=== PATIENT | male | born 1975 | race Caucasian/White ===

== ENCOUNTER 2022-12-19 10:27 | Day surgery (SDC) | payer BC ==
[2022-12-17 13:55] LABS: Absolute Lymphocytes (CBC) 2.3 K/uL (0.7-4.9); Hematocrit 41.7 % (39.6-49.0); Lymphocytes % 31.6 % (15.3-44.8); MCV 92.8 fL (80-100); MPV 7.1 fL (7.6-11.3)
[2022-12-17 14:00] LABS: Potassium 4.1 mmol/L (3.5-5.1); Protime INR 0.99
--- NOTE | 2022-12-17 14:10 | RAD REPORT ---
EXAM DESCRIPTION: Kylah Flores And Maximiliano (2 Views)12/17/2022 1:44 pm CLINICAL HISTORY: Preop for cardiac catheterization COMPARISON: None FINDINGS: The lungs appear clear of acute infiltrate. The heart is normal size IMPRESSION: No acute abnormalities displayed
[2022-12-19] MEDS ORDERED: NA CHLORIDE 0.9% 500 ML ONE (10:34)
[2022-12-19] MEDS ORDERED: HEPA 1000U/500MLS 2,000 UNIT/1,000 ML BAG IV ONE (10:43)
[2022-12-19] MEDS ORDERED: HEPARIN 10,000 UNIT/10 ML VIAL IV ONE (10:44)
[2022-12-19] MEDS ORDERED: MIDAZOLAM HCL 2 MG/2 ML INJ ONE (10:44)
[2022-12-19] MEDS ORDERED: HEPARIN 5000 UNIT/ML 1 ML VIAL ONE (10:44)
[2022-12-19] MEDS ORDERED: FENTANYL CITR 100 MCG/2 ML ONE (10:44)
[2022-12-19] MEDS ORDERED: VERAPAMIL HCL 10 MG/4 ML VIAL IV ONE (10:44)
[2022-12-19] MEDS ORDERED: NITROGLYCERIN/D5W 25 MG/250 ML BTL IV ONE (10:45)
[2022-12-19] MEDS ORDERED: NITROGLYCERIN 100 MCG/ML SYR (for cath lab use only) IV ONE (10:45)
[2022-12-19] MEDS ORDERED: ATROPINE SULF 1 MG/10 ML SYR IV ONE (10:45)
[2022-12-19] MEDS ORDERED: LIDOCAINE 1% 20 ML MDV ONE ×2 (10:45→11:20)
[2022-12-19 15:05] VITALS: BP 128/64; O2SAT 97
--- NOTE | 2022-12-20 03:05 | OP ---
Date of Procedure: 12/19/2022 Surgeon: DEV INFANTE Procedure Performed: 1.Selective coronary angiogram. 2.Left heart catheterization. 3.Right heart catheterization. Indication: Significant shortness of breath on exertion. Access: 1.Right radial artery 6-[place]izen [place] closed with TR band. 2.Right IJ 7-[place] closed with manual pressure. Complications: None. Bleeding: Less than 10 mL. Anesthesia: Total sedation time was 55 minutes, used fentanyl, Versed. Description Of Procedure: After risks, benefits, alternatives were explained, the patient agreed to procedure and signed informed consent. Patient was brought into the cardiac catheterization laborato , prepped and draped in the usual sterile fashion. I then accessed the right radial artery using p ediatric micropuncture kit, placed 6-[place]izen [place] Slender sheath and then I accessed right IJ using ultraso und guidance and micropuncture kit to place a 7-[place] sheath. Took a 5-[place] 4 cath eter into the aortic root, engaged left main, then the right coronary artery, took standard views and then the catheter was pushed over the wire into the LV, measured the LVEDP. Pullback did not record any gradient and the catheter was removed. Sheath was removed, placed TR band with good hemostasis. Then, we took a 7-[place] Hardy catheter through the IJ into the RA, RV, PA, and pulmonary wedge and recorded waveform and pressure and then removed the Hardy, removed the catheter and manual pressure wa s used for closure with good hemostasis. Findings: 1.Left main is normal. 2.LAD is normal with some luminal irregularity distally. Normal diagonal branches. 3.Left circumflex is normal. 4.RCA is large and dominant and normal. 5.Elevated LVEDP at 15 mmHg. 6.Right heart catheterization numbers: RA pressure is 8. RV pressure is 19/2, mean 7. PA pressure is 18/7 with mean of 12. Pulmonary wedge pressure was 12. LVEDP was 15 mmHg. Conclusion: 1.Normal coronary arteries. 2.Slightly elevated filling pressure, probably diastolic dysfunction. Plan: Diabetics. SR/MODL Voice ID: [id number] Report ID: [id number]
== END 2022-12-19 15:09 | disposition home or self-care (01) ==
LOC: CCL 10:27
PROVIDERS: ATTEND Internal Medicine
DX: R07.9 Chest pain, unspecified (principal); R06.02 Shortness of breath; I10 Essential (primary) hypertension; E78.2 Mixed hyperlipidemia; F98.8 Other specified behavioral and emotional disorders with onset usually occurring in childhood and adolescence; E66.01 Morbid (severe) obesity due to excess calories; Z68.38 Body mass index [BMI] 38.0-38.9, adult; Z87.891 Personal history of nicotine dependence; Z79.899 Other long term (current) drug therapy; Z82.49 Family history of ischemic heart disease and other diseases of the circulatory system
CPT/HCPCS: 93005; 85025; 80048; 36415; 85610; 85730; 71046; 93454; 93460; 76937; C1893; Q9966; J2001 ×2; J1644 ×2; J7040; J0461; J2250; J3010